=== PATIENT | female | born 1975 | race Two or more races ===

== ENCOUNTER → 2017-10-18 | Outpatient (CLI) | payer MEDICAID | LOC: CIMAGING 09:13 | PROVIDERS: ATTEND Family Medicine | DX: Z12.31 Encounter for screening mammogram for malignant neoplasm of breast (principal) ==

== ENCOUNTER 2018-04-13 18:22 | Emergency (ER) | payer MEDICAID ==
--- NOTE | 2018-04-13 18:24 | EDPHY ---
H & P Time Seen by Provider: 04/13/18 18:23 HPI/ROS: HPI CHIEF COMPLAINT: Right Ear Pain. HISTORY OF PRESENT ILLNESS: Very pleasant 42-year-old female otherwise healthy no significant medical history reports right ear pain x3 days. No fever no sore throat. States she is unsure she has cerumen impaction. She was cleaning her ear out history of the Q-tip and got cerumen out. However continue have pain and decided come the emergency room. No pain with swallowing. No chest pain or shortness of breath no cough, no sinus congestion, complains of right ear pain. Past Medical History: Denies medical history Past Surgical History: Denies surgical history Social History: Denies drugs alcohol tobacco. Family History: Noncontributory ROS REVIEW OF SYSTEMS: 10 Systems were reviewed and negative with the exception of the elements mentioned in the history of present illness. Exam Constitutional appears well nontoxic no acute distress triage nursing summary reviewed, vital signs reviewed, awake/alert. Vital signs stable Eyes normal conjunctivae and sclera, EOMI, PERRLA. HENT left TM and canal normal, right TM is slightly erythematous, there is some rather wet looking cerumen that is most likely against the right TM. No perforation. No evidence of otitis externa. No mastoid tenderness. External ear is unremarkable. normal inspection, atraumatic, moist mucus membranes, no epistaxis, neck supple/ no meningismus, no raccoon eyes. Respiratory clear to auscultation bilaterally, normal breath sounds, no respiratory distress, no wheezing. Cardiovascular rate normal, regular rhythm, no murmur, no edema, distal pulses normal. Gastrointestinal soft, non-tender, no rebound, no guarding, normal bowel sounds, no distension, no pulsatile mass. Genitourinary no CVA tenderness. Musculoskeletal no midline vertebral tenderness, full range of motion, no calf swelling, no tenderness of extremities, no meningismus, good pulses, neurovascularly intact. Skin pink, warm, & dry, no rash, skin atraumatic. Neurologic awake, alert and oriented x 3, AAOx3, moves all 4 extremities equally, motor intact, sensory intact, CN II-XII intact, normal cerebellar, normal vision, normal speech. Psychiatric normal mood/affect. Heme/Lymph/Immune no lymphadenopathy. Differential Diagnosis: Includes but is not limited to in a particular order cerumen impaction causing TM irritation, otitis media, inner ear effusion MDM:Given the patient has mild redness to the right TM and pain, additionally there is some fluid behind it, additionally small amount of cerumen next heard will irrigate her ear, will placed on antibiotics, will place on a decongestant. Recommend alternating Tylenol Motrin for pain control. D congestion, antibiotic as prescribed. Follow up with ENT as needed. Re-evaluation: Prescription provided for azithromycin Prescription provided for Mucinex. Right Ear been irrigated here in the emergency room with some cerumen removal. Source: Patient Allergies/Adverse Reactions: No Known Allergies Allergy (Unverified 04/13/18 18:29) Home Medications: Medication Instructions Recorded Azithromycin [Zithromax] 250 mg PO DAILY #6 tab 04/13/18 guaiFENesin [Guaifenesin ER] 600 mg PO BID #14 tab.er.12h 04/13/18 Departure - Departure Disposition: Home, Routine, Self-Care Clinical Impression: Cerumen impaction Otitis media Qualifiers: Otitis media type: unspecified Chronicity: acute Qualified Code(s): H66.90 - Otitis media, unspecified, unspecified ear Condition: Good Instructions: Ear Infection (ED), Cerumen Impaction (ED) Additional Instructions: 1. Recommend antibiotics. 2. Alternate Tylenol Motrin for pain control. 3. Decongestion as prescribed. 4. Follow up with ENT as needed. Referrals: Silvia Quan DO [Primary Care Provider] - As per Instructions Elia Mccracken MD [Medical Doctor] - As per Instructions Prescriptions: Azithromycin [Zithromax] 250 mg PO DAILY #6 tab guaiFENesin [Guaifenesin ER] 600 mg PO BID #14 tab.er.12h
[2018-04-13 18:34] VITALS: BP 144/89
[2018-04-13] MEDS ORDERED: AZITHROMYCIN 250 MG TAB PO ONE (18:51)
== END 2018-04-13 18:58 | disposition home or self-care (01) ==
LOC: CED 18:22
PROC: 3E1B78Z Irrigation of Ear using Irrigating Substance, Via Natural or Artificial Opening (ICD-10-PCS; principal; 2018-04-13)
DX: H66.91 Otitis media, unspecified, right ear (principal); H61.21 Impacted cerumen, right ear

== ENCOUNTER → 2018-11-24 | Outpatient (CLI) | payer MEDICAID | LOC: CIMAGING 08:00 ==